=== PATIENT | female | born 1980 | race African-American/Black ===

== ENCOUNTER 2016-05-19 04:51 | Emergency (ER) | payer SELFPAY ==
[~2016-05-19] VITALS: Ht 170.2 cm; Wt 115.0 kg
[2016-05-19 04:55] VITALS: BP 182/93; PULSE 108; RESP 18; TEMP 98.4; O2SAT 96
[2016-05-19 05:00] VITALS: O2SAT 92
[2016-05-19] MEDS: RESP: ALBUTEROL 2.5 MG/3 ML NEB (SCH) INH (05:11)
--- NOTE | 2016-05-19 05:13 | PD ---
HPI Chief Complaint: Respiratory Distress Time Seen by Provider: 04:54 Travel History International Travel<30 days: No Contact w/Intl Traveler<30days: No Traveled to known affect area: No History of Present Illness HPI The patient is a 35 year old female who presents to the [facility] emergency department with a history of shortness of breath that began last night. The patient reports that she has used her Ventolin inhaler without improvement. She denies having any other allergy symptoms or upper respiratory congestion. She reports that she has had a mainly dry cough since the onset of the shortness of breath, however it is occasionally productive of clear sputum. She reports that she does have a history of asthma. She reports that she has had chills and intermittent sweating. The patient denies any recent fevers, neck pain, chest pain, abdominal pain, vomiting, diarrhea, urinary symptoms, or neurologic symptoms. LMP: A week ago PFSH Past Medical History Narrative Medical The patient's past medical history is significant for asthma. Asthma: Yes Tetanus Vaccination: < 5 Years Influenza Vaccination: No ?: Unknown LMP: 05/11/16 : 2 Past Surgical History Narrative Surgical The patient's past surgical history is significant for a cholecystectomy, 2 prior abortions. Appendectomy: Yes Social History Alcohol Use: No Tobacco Use: No Substance Use: No Allergies-Medications (Allergen,Severity, Reaction): Coded Allergies: Coconut (Verified Allergy, Unknown, 05/19/16) Egg Allergy (Verified Allergy, Unknown, 05/19/16) Latex (Verified Allergy, Unknown, 05/19/16) Peanut (Verified Allergy, Unknown, 05/19/16) Narrative Medication A Ventolin inhaler Review of Systems Except as stated in HPI: all other systems reviewed are Neg General / Constitutional: No: Fever Eyes: No: Visual changes HENT: No: Headaches Cardiovascular: No: Chest Pain or Discomfort, Dyspnea on exertion Respiratory: Positive: Cough, Shortness of Breath, Wheezing Gastrointestinal: No: Abdominal Pain Genitourinary: No: Dysuria Musculoskeletal: No: Pain Skin: No Rash Neurologic: No: Weakness Psychiatric: No: Depression Endocrine: No: Polydipsia Hematologic/Lymphatic: No: Easy Bruising Physical Exam Narrative General: The patient is a well-developed well-nourished female who appears short of breath on arrival. Head and Neck exam: Head is normocephalic atraumatic. Eyes: Pupils are equal round and reactive to light. Nose: Midline septum with pink mucous membranes Mouth: Dentition unremarkable. Moist mucus membranes. Posterior oropharynx is not erythematous. No tonsillar hypertrophy. Uvula midline. Airway patent. Neck: No palpable lymphadenopathy. No nuchal rigidity. No thyromegaly. Cardiovascular: Regular rate and rhythm without murmurs, gallops, or rubs. Lungs: Soft expiratory wheezes audible throughout bilateral lung anderson, no rhonchi, no crackles. The patient has some conversational dyspnea. She has some accessory muscle use. No tripoding. No paroxysmal abdominal breathing. Abdomen: Soft, without tenderness to palpation in all 4 quadrants of the abdomen. No guarding, rebound, or rigidity. Normal bowel sounds are audible. Extremities: No clubbing, cyanosis, or edema. 2+ pulses in all 4 extremities. No calf tenderness on palpation. Back: No spinous process tenderness to palpation. No costovertebral angle tenderness to palpation. Neurologic Exam: Grossly nonfocal. Skin Exam: No rash noted. Intact skin that is warm and dry. Data Data Last Documented VS Vital Signs Date Time Temp Pulse Resp B/P Pulse Ox O2 Delivery O2 Flow Rate FiO2 05/19/16 05:00 92 21 05/19/16 04:57 96 22 Room Air 05/19/16 04:55 98.4 182/93 Orders Complete Blood Count With Diff (05/19/16 05:04) Basic Metabolic Panel (Bmp) (05/19/16 05:04) C-Reactive Protein (Crp) (05/19/16 05:04) Influenzae A/B Antigen (05/19/16 05:04) Chest, Single Ap (05/19/16 05:04) Iv Access Insert/Monitor (05/19/16 05:04) Ecg Monitoring (05/19/16 05:04) Oximetry (05/19/16 05:04) Methylprednisolone So Succ Inj (Solumedr (05/19/16 05:15) Albuterol-Ipratropium Neb (Duoneb Neb) (05/19/16 05:15) Sodium Chloride 0.9% Flush (Ns Flush) (05/19/16 05:15) Albuterol Neb (Albuterol Neb) (05/19/16 05:15) Azithromycin Inj (Zithromax Inj) (05/19/16 06:30) Acetaminophen (Tylenol) (05/19/16 06:30) Labs Laboratory Tests Test 05/19/16 05:10 White Blood Count 5.1 TH/MM3 Red Blood Count 4.08 MIL/MM3 Hemoglobin 10.7 GM/DL Hematocrit 32.1 % Mean Corpuscular Volume 78.8 FL Mean Corpuscular Hemoglobin 26.2 PG Mean Corpuscular Hemoglobin 33.3 % Concent Red Cell Distribution Width 18.4 % Platelet Count 264 TH/MM3 Mean Platelet Volume 10.1 FL Neutrophils (%) (Auto) 60.2 % Lymphocytes (%) (Auto) 26.8 % Monocytes (%) (Auto) 11.4 % Eosinophils (%) (Auto) 0.2 % Basophils (%) (Auto) 1.4 % Neutrophils # (Auto) 3.0 TH/MM3 Lymphocytes # (Auto) 1.4 TH/MM3 Monocytes # (Auto) 0.6 TH/MM3 Eosinophils # (Auto) 0.0 TH/MM3 Basophils # (Auto) 0.1 TH/MM3 CBC Comment DIFF FINAL Differential Comment Sodium Level 140 MEQ/L Potassium Level 3.8 MEQ/L Chloride Level 106 MEQ/L Carbon Dioxide Level 26.4 MEQ/L Anion Gap 8 MEQ/L Blood Urea Nitrogen 10 MG/DL Creatinine 0.91 MG/DL Estimat Glomerular Filtration 86 ML/MIN Rate Random Glucose 88 MG/DL Calcium Level 8.5 MG/DL C-Reactive Protein 3.20 MG/DL MDM Medical Decision Making Medical Screen Exam Complete: Yes Emergency Medical Condition: Yes Medical Record Reviewed: Yes Interpretation(s) Last Impressions Chest X-Ray 05/19/16 0504 Signed Impressions: Service Date/Time: Thursday, May 19, 2016 05:15 - CONCLUSION: No acute disease. Tc Saucedo MD Differential Diagnosis Asthma exacerbation, versus pneumonia, versus influenza, versus pneumonia Narrative Course During the course of the patients emergency department visit, the patients history, examination, and differential diagnosis were reviewed with the patient. The patient had IV access obtained and blood work sent for analysis. The patient was placed on a automatic bandsaw tender with oximetry and blood pressure monitoring. An EKG was done on arrival. The patient's EKG shows a sinus rhythm heart rate of 94, no acute ST segment elevation, T waves are inverted in V1, no acute ST segment depression. A chest x-ray was ordered. The patient was provided a DuoNeb 1, albuterol nebulizer treatments 2, Solu- Medrol 125 mg IV. The patients laboratory studies were reviewed and remarkable for a white count of 5.1, hemoglobin 10.7, platelets 264 with 11.4 monocytes, BNP is remarkable for a GFR of 86, C-reactive protein 3.20. Radiology studies were reviewed and remarkable for a chest x-ray that showed no acute abnormality. The patient was reexamined and reportedly feeling improved. The patient reports having a mild bitemporal headache. The patient was given Tylenol 650 by mouth 1, azithromycin 500 mg IV. The patient will be discharged home with a prescription for Medrol Dosepak taper, azithromycin to be completed over the next 4 days. The patient is resting comfortably and feels better, is alert and in no distress. The patients results and examination findings were discussed with her. The repeat examination is unremarkable and benign. The history, exam, diagnostic testing, and current condition do not suggest any significant pathology to warrant further testing, continued ED treatment, admission, or surgical evaluation at this point. The vital signs have been stable. The patient does not have uncontrollable pain, intractable vomiting, or other significant symptoms. The patient's condition is stable and appropriate for discharge. The patient will pursue further outpatient evaluation with a primary care physician or other designated or consulting physician as indicated in the discharge instructions. The patient expressed understanding and was agreeable with this plan. Diagnosis Primary Impression: Asthma exacerbation Additional Impression: Bronchitis Referrals: Ehsan Ponce MD 3 days Patient Instructions: Acute Bronchitis (ED), Asthma (ED), General Instructions Departure Forms: Tests/Procedures, Work Release Enter return to work date: May 20, 2016 Med/Other Pt SpecificInfo: Prescription(s) given Scripts Methylprednisolone Dosepak (Medrol Dosepak)4 Mg Dspk4 Mg PO DIRECTED #1 DSPK Ref 0 Per Pharmacist direction Prov:Monica Fernandez MD 05/19/16 Azithromycin 250 Mg Gte822 Mg PO DAILY 4 Days Ref 0 Prov:Monica Fernandez MD 05/19/16 Disposition: 01 DISCHARGE HOME Condition: Stable Monica Fernandez MD May 19, 2016 05:13
[2016-05-19] MEDS ORDERED: methylPREDNISolone SOD SUCC 125 MG/2 ML VIAL IVP ONE (05:15)
[2016-05-19] MEDS ORDERED: SODIUM CHLORIDE 0.9% FLUSH 5 ML FLUSH IVF PRN (05:15)
[2016-05-19] MEDS ORDERED: RESP: ALBUTEROL 2.5 MG/IPRATROPIUM 0.5 MG NEB (SCH) NEB ONE (05:15)
--- NOTE | 2016-05-19 05:32 | RADRPT ---
EXAM DATE/TIME: 05/19/2016 05:15 [facility] COMPARISON: No previous studies available for comparison. INDICATIONS : Pt short of breath. MEDICAL HISTORY : None. SURGICAL HISTORY : None. ENCOUNTER: Initial ACUITY: 1 day PAIN SCORE: 7/10 LOCATION: Bilateral chest FINDINGS: A single view of the chest demonstrates the lungs to be symmetrically aerated without evidence of mas s, infiltrate or effusion. The cardiomediastinal contours are unremarkable. Osseous structures are intact. CONCLUSION: No acute disease. Tc Saucedo MD on May 19, 2016 at 5:30 Board Certified Radiologist. This report was verified electronically.
[2016-05-19 05:53] LABS: BASOPHIL # 0.1 TH/MM3 (0-0.2); BASOPHIL % 1.4 % (0.0-2.0); EOSINOPHIL % 0.2 % (0.0-4.0); HEMATOCRIT 32.1 % (35.0-46.0); HEMO FLAGS DIFF FINAL; LYMPH % 26.8 % (9.0-44.0); LYMPHOCYTE # 1.4 TH/MM3 (1.0-4.8); MEAN CELL VOLUME 78.8 FL (80.0-100.0); MEAN CORPUSCULAR HEMOGLOBIN 26.2 PG (27.0-34.0); MEAN CORPUSCULAR HGB CONC 33.3 % (32.0-36.0); MONO % 11.4 % (0.0-8.0); NEUT % 60.2 % (16.0-70.0); PLATELET COUNT 264 TH/MM3 (150-450); RED BLOOD COUNT 4.08 MIL/MM3 (4.00-5.30); RED CELL DISTRIBUTION WIDTH 18.4 % (11.6-17.2); WHITE BLOOD COUNT 5.1 TH/MM3 (4.0-11.0)
[2016-05-19 05:55] LABS: BICARBONATE 26.4 MEQ/L (21.0-32.0); POTASSIUM 3.8 MEQ/L (3.5-5.1)
[2016-05-19] MEDS ORDERED: AZIT250T3 PO (06:20)
[2016-05-19] MEDS ORDERED: MEDR4PAK PO (06:20)
[2016-05-19] MEDS ORDERED: ACETAMINOPHEN 325 MG TAB PO ONE (06:30)
[2016-05-19] MEDS ORDERED: AZITHROMYCIN INJ 500 MG in SODIUM CHLOR 0.9% 250 ML INJ 250 ML IV ONE (06:30)
[2016-05-19 06:31] VITALS: BP 133/85; PULSE 101; RESP 18; TEMP 98.7; O2SAT 95
[2016-05-19 07:55] VITALS: BP 133/85; PULSE 90; RESP 16; O2SAT 96
[2016-05-19 08:55] VITALS: RESP 16
--- NOTE | 2016-05-19 19:23 | EKG ---
Date Performed: 05/19/2016 Time Performed: 04:58:25 PTAGE: 35 years EKG: Sinus rhythm NORMAL ECG NO PREVIOUS TRACING DOCTOR: Roberto Levin Interpretating Date/Time 05/19/2016 19:19:37
[2016-05-20] MEDS ORDERED: MUCI600T PO (09:58)
[2016-05-20] MEDS ORDERED: VENTAER INH (09:58)
[2016-05-20] MEDS ORDERED: PRED20 PO (10:00)
[2016-05-20] MEDS ORDERED: ZITH250T PO (10:00)
[2016-05-28] MEDS ORDERED: NEBULIZER/ADULT1 KIT (12:27)
[2016-05-28] MEDS ORDERED: VENTAER INH (12:35)
[2016-05-28] MEDS ORDERED: ALBU0.08 NEB (12:35)
[2016-05-28] MEDS ORDERED: BENZ100 PO (12:35)
== END 2016-05-19 09:05 | disposition home or self-care (01) ==
LOC: NEPE 04:51
DX: J45.901 Unspecified asthma with (acute) exacerbation (principal); J40 Bronchitis, not specified as acute or chronic; R05 Cough
CPT/HCPCS: 71010; 80048; 85025; 86140; 87804; 93005; 94640; 94664; 96365; 96366; 96375; 99284; J0456; J2930; J7050; J7613

== ENCOUNTER 2016-05-20 03:10 | Observation (INO) | payer SELFPAY ==
[2016-05-20] VITALS (11 sets, daily range): BP systolic 129–166; BP diastolic 63–97; PULSE 92–123; RESP 17–28; TEMP 97.6–99.4; O2SAT 92–98
[~2016-05-20 03:10] MED LIST: AZIT250T3 PO; MEDR4PAK PO
[2016-05-20] MEDS ORDERED: methylPREDNISolone SOD SUCC 125 MG/2 ML VIAL IVP ONE (04:00)
[2016-05-20] MEDS ORDERED: cefTRIAXone INJ 1,000 MG in SODIUM CHLORIDE 0.9% INJ 100 ML IV ONE (04:00)
[2016-05-20] MEDS ORDERED: SODIUM CHLORIDE 0.9% FLUSH 5 ML FLUSH IVF PRN (04:00)
[2016-05-20] MEDS ORDERED: AZITHROMYCIN INJ 500 MG in SODIUM CHLOR 0.9% 250 ML INJ 250 ML IV ONE (04:00)
--- NOTE | 2016-05-20 04:13 | PD ---
HPI Chief Complaint: Respiratory Symptoms Time Seen by Provider: 03:36 Travel History International Travel<30 days: No Contact w/Intl Traveler<30days: No Traveled to known affect area: No History of Present Illness HPI The patient is a 35 year old female who presents to the [facility] emergency department with a history of coughing and congestion that she reports began 2-3 days ago. The patient reports that on May 18 she began to have wheezing and shortness of breath. She reports that she used her Ventolin inhaler without relief. The patient came to the emergency department early in the morning on May 19 for evaluation. The patient was seen by me and diagnosed with bronchitis and asthma exacerbation after laboratory studies and a chest x-ray were done. The patient improved after administration of nebulizer treatments, Solu-Medrol IV, and azithromycin was given and a single dose. The patient was discharged home with a Medrol Dosepak taper and continuation of her antibiotic prescription. The patient reports that the medications were too expensive. She reports that at 5 PM today she began to have recurrence of the wheezing and shortness of breath. She reports that she has a headache from coughing. She reports that the headache is bitemporal. The patient reports having upper abdominal pain in the musculature related to coughing. The patient denies any recent fevers neck pain, chest pain, shortness of breath, abdominal pain, vomiting, diarrhea, urinary symptoms, or neurologic symptoms. LMP: Approximately a week ago. [facility] Past Medical History Narrative Medical The patient's past medical history is significant for asthma, multiple food allergies. Asthma: Yes Tetanus Vaccination: Unknown Influenza Vaccination: No ?: Not LMP: 05/16/16 : 2 Past Surgical History Narrative Surgical The patient's past surgical history is significant for a cholecystectomy, 2 prior abortions. Appendectomy: Yes Social History Alcohol Use: No Tobacco Use: No Substance Use: No Allergies-Medications (Allergen,Severity, Reaction): Coded Allergies: Coconut (Verified Allergy, Unknown, 05/19/16) Egg Allergy (Verified Allergy, Unknown, 05/19/16) Latex (Verified Allergy, Unknown, 05/19/16) Peanut (Verified Allergy, Unknown, 05/19/16) Reported Meds & Prescriptions Reported Meds & Active Scripts Active Prednisone 20 Mg Tab 40 Mg PO DAILY Zithromax (Azithromycin) 250 Mg Tab 250 Mg PO DAILY Ventolin Hfa 18 GM Inh (Albuterol Sulfate) 90 Mcg/Act Aer 2 Puff INH Q4H PRN Mucinex ER 12 HR (Guaifenesin) 600 Mg Liz 600 Mg PO BID Medrol Dosepak (Methylprednisolone) 4 Mg Dspk 4 Mg PO DIRECTED Per Pharmacist direction Azithromycin 250 Mg Tab 250 Mg PO DAILY 4 Days Review of Systems Except as stated in HPI: all other systems reviewed are Neg General / Constitutional: No: Fever Eyes: No: Visual changes HENT: Positive: Headaches (bitemporal), Rhinorrhea, Congestion, No: Neck Stiffness, Neck Pain Cardiovascular: No: Chest Pain or Discomfort Respiratory: Positive: Cough, No: Shortness of Breath Gastrointestinal: No: Nausea, Vomiting, Diarrhea, Abdominal Pain Genitourinary: No: Dysuria Musculoskeletal: No: Pain Skin: No Rash Neurologic: No: Weakness Psychiatric: No: Depression Endocrine: No: Polydipsia Hematologic/Lymphatic: No: Easy Bruising Physical Exam Narrative General: The patient is well-developed well-nourished female, short of breath on initial evaluation with accessory muscle use, conversational dyspnea. Head and Neck exam: Head is normocephalic atraumatic. Eyes: Pupils are equal round and reactive to light. Nose: Midline septum with erythematous edematous nasal mucosa and a clear nasal discharge. Mouth: Dentition unremarkable. Moist mucus membranes. Posterior oropharynx is slightly erythematous. No tonsillar hypertrophy. Uvula midline. Airway patent. Neck: No palpable lymphadenopathy. No nuchal rigidity. No thyromegaly. Cardiovascular: Sinus tachycardia in the low 100s to 1 teens without murmurs, gallops, or rubs. No pulse deficit to the extremities and simultaneous auscultation and palpation of her radial artery. Lungs: Bilateral expiratory wheezes are noted. No rhonchi, no crackles. No tripoding. No paroxysmal abdominal breathing. She does have some retractions noted. Abdomen: Soft, without tenderness to palpation in all 4 quadrants of the abdomen. No guarding, rebound, or rigidity. Normal bowel sounds are audible. No tenderness on palpation of McBurney's point. Extremities: No clubbing, cyanosis, or edema. 2+ pulses in all 4 extremities. No calf tenderness on palpation. Back: No spinous process tenderness to palpation. No costovertebral angle tenderness to palpation. Neurologic Exam: Grossly nonfocal. Skin Exam: No rash noted. Intact skin that is warm and dry. Data Data Last Documented VS Vital Signs Date Time Temp Pulse Resp B/P Pulse Ox O2 Delivery O2 Flow Rate FiO2 05/20/16 05:19 20 05/20/16 05:19 96 Nasal Cannula 2 05/20/16 03:37 112 152/87 05/20/16 03:14 99.4 Orders Complete Blood Count With Diff (05/20/16 03:56) Comprehensive Metabolic Panel (05/20/16 03:56) D-Dimer (05/20/16 03:56) Iv Access Insert/Monitor (05/20/16 03:56) Electrocardiogram (05/20/16 03:56) Ecg Monitoring (05/20/16 03:56) Oximetry (05/20/16 03:56) Oxygen Administration (05/20/16 03:56) Sodium Chloride 0.9% Flush (Ns Flush) (05/20/16 04:00) Methylprednisolone So Succ Inj (Solumedr (05/20/16 04:00) Albuterol Neb (Albuterol Neb) (05/20/16 04:00) Ceftriaxone Inj (Rocephin Inj) (05/20/16 04:00) Azithromycin Inj (Zithromax Inj) (05/20/16 04:00) Admit Order (Ed Use Only) (05/20/16 05:37) Chest, Single Ap (05/20/16 05:38) Labs Laboratory Tests Test 05/20/16 05/20/16 04:00 04:35 White Blood Count 8.6 TH/MM3 Red Blood Count 4.11 MIL/MM3 Hemoglobin 10.7 GM/DL Hematocrit 32.6 % Mean Corpuscular Volume 79.3 FL Mean Corpuscular Hemoglobin 26.1 PG Mean Corpuscular Hemoglobin 32.9 % Concent Red Cell Distribution Width 19.2 % Platelet Count 273 TH/MM3 Mean Platelet Volume 9.9 FL Neutrophils (%) (Auto) 72.1 % Lymphocytes (%) (Auto) 17.1 % Monocytes (%) (Auto) 10.3 % Eosinophils (%) (Auto) 0.0 % Basophils (%) (Auto) 0.5 % Neutrophils # (Auto) 6.2 TH/MM3 Lymphocytes # (Auto) 1.5 TH/MM3 Monocytes # (Auto) 0.9 TH/MM3 Eosinophils # (Auto) 0.0 TH/MM3 Basophils # (Auto) 0.0 TH/MM3 CBC Comment DIFF FINAL Differential Comment Sodium Level 142 MEQ/L Potassium Level 4.0 MEQ/L Chloride Level 109 MEQ/L Carbon Dioxide Level 24.1 MEQ/L Anion Gap 9 MEQ/L Blood Urea Nitrogen 19 MG/DL Creatinine 0.92 MG/DL Estimat Glomerular Filtration 85 ML/MIN Rate Random Glucose 90 MG/DL Calcium Level 9.1 MG/DL Total Bilirubin 0.3 MG/DL Aspartate Amino Transf 24 U/L (AST/SGOT) Alanine Aminotransferase 26 U/L (ALT/SGPT) Alkaline Phosphatase 84 U/L Total Protein 8.3 GM/DL Albumin 3.6 GM/DL D-Dimer Quantitative (PE/DVT) 0.43 MG/L [facility] Medical Decision Making Medical Screen Exam Complete: Yes Emergency Medical Condition: Yes Medical Record Reviewed: Yes Interpretation(s) Last Impressions Chest X-Ray 05/20/16 0538 Signed Impressions: Service Date/Time: Friday, May 20, 2016 05:38 - CONCLUSION: No acute disease. Tc Saucedo MD Differential Diagnosis Asthma exacerbation, versus pneumothorax, versus pneumonia, versus pulmonary embolism Narrative Course During the course of the patients emergency department visit, the patients history, examination, and differential diagnosis were reviewed with the patient. The patient had IV access obtained and blood work sent for analysis. The patient was placed on a teaching young with oximetry and blood pressure monitoring. An EKG was ordered. The patient's EKG revealed a sinus tachycardia rate of 105, nonspecific T-wave abnormalities, no acute ST segment elevation is noted. The patient was provided Solu-Medrol 125 mg IV, albuterol nebulizer treatments 3. The patients laboratory studies were reviewed and remarkable for a white count of 8.6, hemoglobin 10.7, platelets 273 with 72.1 neutrophils, monocytes 10.3, CMP is remarkable for a chloride of 109, BUN 19, GFR of 85, total protein 8.3, d -dimer is 0.43, decreasing the likelihood of pulmonary embolism in this patient with no other significant risk factors. The patient was reexamined and continued to have soft expiratory wheezes. The patient was given a dose of Phenergan with codeine cough syrup for persistent dry cough. They she'll be admitted to the hospital for observation for an asthma exacerbation. The patients results were discussed with the patient, including the plan of care. I explained that further testing and/ or monitoring is indicated based on the patients history, examination, and/ or laboratory findings. Therefore, I recommended admission for additional evaluation. The patient expressed understanding and was agreeable with this plan. The patient was admitted to the hospital in stable condition and [facility] Physician Communication Physician Communication The patient's case was discussed with Dr. Ch who did agree to admit the patient for further evaluation and treatment at this time. Diagnosis Primary Impression: Asthma exacerbation Additional Impression: Bronchitis Admitting Information Admitting Physician Requests: Observation Scripts Prednisone 20 Mg Tab40 Mg PO DAILY #8 TAB Prov:Vaibhav Tran MD 05/20/16 Azithromycin (Zithromax)250 Mg Qab187 Mg PO DAILY #3 TAB Prov:Vaibhav Tran MD 05/20/16 Albuterol 18 GM Inh (Ventolin Hfa 18 GM Inh)90 Mcg/Act Aer2 Puff INH Q4H PRN ( SHORTNESS OF BREATH) #1 INHALER Ref 0 Prov:Vaibhav Tran MD 05/20/16 Guaifenesin ER 12 HR (Mucinex ER 12 HR)600 Mg [id number] Mg PO BID #20 TAB Prov:Vaibhav Tran MD 05/20/16 Monica Fernandez MD May 20, 2016 04:13
[2016-05-20] MEDS: RESP: ALBUTEROL 2.5 MG/3 ML NEB (SCH) INH ×2 (04:29→04:30)
[2016-05-20 04:30] LABS: AUTOMATED NEUTROPHIL # 6.2 TH/MM3 (1.8-7.7); BASOPHIL % 0.5 % (0.0-2.0); HEMATOCRIT 32.6 % (35.0-46.0); HEMO FLAGS DIFF FINAL; LYMPH % 17.1 % (9.0-44.0); LYMPHOCYTE # 1.5 TH/MM3 (1.0-4.8); MEAN CELL VOLUME 79.3 FL (80.0-100.0); MEAN CORPUSCULAR HEMOGLOBIN 26.1 PG (27.0-34.0); MEAN CORPUSCULAR HGB CONC 32.9 % (32.0-36.0); MONO % 10.3 % (0.0-8.0); NEUT % 72.1 % (16.0-70.0); PLATELET COUNT 273 TH/MM3 (150-450); RED BLOOD COUNT 4.11 MIL/MM3 (4.00-5.30); RED CELL DISTRIBUTION WIDTH 19.2 % (11.6-17.2); WHITE BLOOD COUNT 8.6 TH/MM3 (4.0-11.0)
[2016-05-20 04:50] LABS: ALKALINE PHOSPHATASE 84 U/L (45-117); ALT (GPT) 26 U/L (10-53); ANION GAP 9 MEQ/L (5-15); AST (GOT) 24 U/L (15-37); BICARBONATE 24.1 MEQ/L (21.0-32.0); BLOOD UREA NITROGEN 19 MG/DL (7-18); CHLORIDE 109 MEQ/L (98-107); GLOMERULAR FILTRATION RATE 85 ML/MIN (>89); SODIUM (NA) 142 MEQ/L (136-145); TOTAL BILIRUBIN ADULT 0.3 MG/DL (0.2-1.0)
[2016-05-20] MEDS ORDERED: NALOXONE HCL 0.4 MG/ML AMP IV PRN (06:00)
[2016-05-20] MEDS ORDERED: SODIUM CHLORIDE 0.9% FLUSH 5 ML FLUSH FLUSH PRN (06:00)
[2016-05-20] MEDS ORDERED: RESP: ALBUTEROL 2.5 MG/IPRATROPIUM 0.5 MG NEB (PRN) NEB (06:00)
--- NOTE | 2016-05-20 06:10 | RADRPT ---
EXAM DATE/TIME: 05/20/2016 05:38 [facility] COMPARISON: CHEST SINGLE AP, May 19, 2016, 5:15. INDICATIONS : Shortness of breath. MEDICAL HISTORY : Asthma. SURGICAL HISTORY : None. ENCOUNTER: Initial ACUITY: 1 day PAIN SCORE: 0/10 LOCATION: Bilateral chest FINDINGS: A single view of the chest demonstrates the lungs to be symmetrically aerated without evidence of mas s, infiltrate or effusion. The cardiomediastinal contours are unremarkable. Osseous structures are intact. CONCLUSION: No acute disease. Tc Saucedo MD on May 20, 2016 at 6:08 Board Certified Radiologist. This report was verified electronically.
[2016-05-20] MEDS ORDERED: PROMETHAZINE/CODEINE 6.25 MG/10 MG/5 ML CUP PO ONE (07:15)
[2016-05-20] MEDS: RESP: ALBUTEROL 2.5 MG/IPRATROPIUM 0.5 MG NEB (SCH) NEB ×5 (07:31→23:46)
[2016-05-20] MEDS ORDERED: ACETAMINOPHEN 325 MG TAB PO PRN (08:00)
[2016-05-20] MEDS ORDERED: CALCIUM CARBONATE 500 MG CHEWABLE TAB CHEW PRN (08:00)
[2016-05-20] MEDS ORDERED: ONDANSETRON HCL 4 MG/2 ML VIAL IV PRN (08:00)
[2016-05-20] MEDS ORDERED: DOCUSATE SODIUM 100 MG CAP PO PRN (08:00)
[2016-05-20] MEDS ORDERED: DOCUSATE SODIUM 50 MG/SENNA 8.6 MG TAB PO PRN (08:00)
[2016-05-20] MEDS ORDERED: ALUMINUM/MAGNESIUM/SIMETH 30 ML CUP PO PRN (08:00)
[2016-05-20] MEDS ORDERED: MAGNESIUM HYDROXIDE SUSP 30 ML CUP PO PRN (08:00)
[2016-05-20] MEDS ORDERED: BENZONATATE 100 MG CAP PO PRN (09:45)
[2016-05-20] MEDS ORDERED: guaiFENesin/CODEINE SYRUP 200 MG/20 MG/10 ML CUP PO PRN (09:45)
--- NOTE | 2016-05-20 09:56 | HHI.HP ---
HPI Service [facility] Hospitalists Primary Care Physician No Primary Care Physician Admission Diagnosis asthma exacerbation, bronchitis Diagnoses: Travel History International Travel<30 Days: No Contact w/Intl Traveler <30 Da: No Traveled to Known Affected Are: No History of Present Illness This a 35 year old female with a history of bronchial asthma diagnosed 3 years ago. States she has used steroids for asthma and has been hospitalized once but never been intubated. She returns to the [facility] emergency department with a history of nonproductive coughing and congestion that began 2- 3 days ago associated with wheezing and shortness of breath specially on exertion. Patient states her asthma attacks are related to change in weather but she believes it started after she sprayed in the bathroom. She reports that she used her Ventolin inhaler without relief. The patient came to the emergency department early in the morning on May 19 for evaluation. She was diagnosed with bronchitis and asthma exacerbation. The patient improved after administration of nebulizer treatments, Solu-Medrol IV, and azithromycin and was discharged home with a Medrol Dosepak taper and continuation of her antibiotic prescription. The patient reports that the medications were too expensive. She reports that at 5 PM yesterday she began to have recurrence of the wheezing and shortness of breath. She reports that she has a bitemporal headache from coughing. The patient reports having pleuritic lower chest and upper abdominal pain related to coughing. The patient denies any recent fevers neck pain, chest pain, vomiting, diarrhea, urinary symptoms, or neurologic symptoms. This morning she feels better with no headache with improving pleuritic chest pain and wheezing but continues to have dyspnea on exertion. Review of Systems Constitutional: DENIES: Diaphoretic episodes, Fatigue, Fever, Weight gain, Weight loss, Chills, Dizziness, Change in appetite, Night Sweats Endocrine: DENIES: Heat/cold intolerance, Polydipsia, Polyuria, Polyphagia Eyes: DENIES: Blurred vision, Diplopia, Vision loss, Photosensitivity Ears, nose, mouth, throat: DENIES: Tinnitus, Vertigo, Throat pain, Hoarseness, Epistaxis, Odynophagia Respiratory: COMPLAINS OF: Cough, Shortness of breath, DENIES: Wheezing, Hemoptysis, Sputum production Cardiovascular: COMPLAINS OF: Chest pain, DENIES: Palpitations, Syncope, Dyspnea on Exertion, PND, Lower Extremity Edema, Orthopnea, Claudication Gastrointestinal: COMPLAINS OF: Abdominal pain, DENIES: Black stools, Bloody stools, Constipation, Diarrhea, Nausea, Vomiting, Difficulty Swallowing, Anorexia Genitourinary: DENIES: Urinary frequency, Urinary incontinence, Urgency, Hematuria, Dysuria, Nocturia, Vaginal discharge Integumentary: DENIES: Rash Neurologic: COMPLAINS OF: Headache, DENIES: Localized weakness, Seizures, Tremor, Poor Balance Psychiatric: DENIES: Anxiety, Confusion, Depression, Hallucinations, Agitation , Suicidal Ideation, Homicidal Ideation, Delusions Past Family Social History Past Medical History As previously mentioned Past Surgical History Cholecystectomy and two abortions. LMP 05/09/16 Reported Medications Medrol Dosepak and azithromycin Allergies: Coded Allergies: Coconut (Verified Allergy, Unknown, 05/19/16) Egg Allergy (Verified Allergy, Unknown, 05/19/16) Latex (Verified Allergy, Unknown, 05/19/16) Peanut (Verified Allergy, Unknown, 05/19/16) Family History No asthma Physical Exam Vital Signs Vital Signs Date Time Temp Pulse Resp B/P Pulse Ox O2 Delivery O2 Flow Rate FiO2 05/20/16 07:32 94 Nasal Cannula 2.00 05/20/16 06:52 103 24 134/63 92 Nasal Cannula 05/20/16 05:19 20 05/20/16 05:19 96 Nasal Cannula 2 05/20/16 03:42 24 95 05/20/16 03:37 112 24 152/87 95 05/20/16 03:14 99.4 123 28 166/97 95 Physical Exam GENERAL: This is a well-nourished, well-developed patient, in no apparent distress. SKIN: No rashes, ecchymoses or lesions. Cool and dry. HEAD: Atraumatic. Normocephalic. No temporal or scalp tenderness. EYES: Pupils equal round and reactive. Extraocular motions intact. No scleral icterus. No injection or drainage. ENT: Nose without bleeding, purulent drainage or septal hematoma. Throat without erythema, tonsillar hypertrophy or exudate. Uvula midline. Airway patent. NECK: Trachea midline. No JVD or lymphadenopathy. Supple, nontender, no meningeal signs. CARDIOVASCULAR: Regular rate and rhythm without murmurs, gallops, or rubs. RESPIRATORY: Clear to auscultation. Breath sounds equal bilaterally. No wheezes , rales, or rhonchi. GASTROINTESTINAL: Abdomen soft, non-tender, nondistended. No guarding. MUSCULOSKELETAL: Extremities without clubbing, cyanosis, or edema. No joint tenderness, effusion, or edema noted. No calf tenderness. Negative Homans sign bilaterally. NEUROLOGICAL: Awake and alert. Cranial nerves II through XII intact. Motor and sensory grossly within normal limits. Five out of 5 muscle strength in all muscle groups. Normal speech. Laboratory Laboratory Tests Test 05/20/16 05/20/16 04:00 04:35 White Blood Count 8.6 Red Blood Count 4.11 Hemoglobin 10.7 Hematocrit 32.6 Mean Corpuscular Volume 79.3 Mean Corpuscular Hemoglobin 26.1 Mean Corpuscular Hemoglobin 32.9 Concent Red Cell Distribution Width 19.2 Platelet Count 273 Mean Platelet Volume 9.9 Neutrophils (%) (Auto) 72.1 Lymphocytes (%) (Auto) 17.1 Monocytes (%) (Auto) 10.3 Eosinophils (%) (Auto) 0.0 Basophils (%) (Auto) 0.5 Neutrophils # (Auto) 6.2 Lymphocytes # (Auto) 1.5 Monocytes # (Auto) 0.9 Eosinophils # (Auto) 0.0 Basophils # (Auto) 0.0 CBC Comment DIFF FINAL Differential Comment Sodium Level 142 Potassium Level 4.0 Chloride Level 109 Carbon Dioxide Level 24.1 Anion Gap 9 Blood Urea Nitrogen 19 Creatinine 0.92 Estimat Glomerular Filtration 85 Rate Random Glucose 90 Calcium Level 9.1 Total Bilirubin 0.3 Aspartate Amino Transf 24 (AST/SGOT) Alanine Aminotransferase 26 (ALT/SGPT) Alkaline Phosphatase 84 Total Protein 8.3 Albumin 3.6 D-Dimer Quantitative (PE/DVT) 0.43 Result Diagram: 05/20/1639905/20/16399 Imaging Chest x-ray with no acute cardiopulmonary disease image interpreted by me EKG tracing interpreted by me with sinus tachycardia Assessment and Plan Problem List: (1) Asthma exacerbation ICD Code: J45.901 Status: Acute (2) Bronchitis ICD Code: J40 Status: Acute Assessment and Plan This is a 35-year-old female with a history of bronchial asthma who returned to the emergency room with nonproductive coughing, congestion, wheezing and shortness of breath with normal chest x-ray. Asthma exacerbation secondary to bronchitis with failed outpatient therapy. Continue nebulizations, Zithromax and switch steroids to by mouth. Increase activity as tolerated. Sinus tachycardia secondary to above Pleuritic chest and abdominal pain. Tylenol as needed. Start mucolytics and antitussives. Low risk for DVT Case management consult for patient's assistance Discussed Condition With Patient Discharge patient to home Condition on discharge: Improved Regular Diet as tolerated Ad Rebecca activity no driving Rx written: Zithromax, albuterol and prednisone Follow-up with primary care physician in one week Vaibhav Tran MD May 20, 2016 09:56
[2016-05-20] MEDS ORDERED: MUCI600T PO (09:58)
[2016-05-20] MEDS ORDERED: VENTAER INH (09:58)
--- NOTE | 2016-05-20 09:58 | HHI.DCPOC ---
Discharge Care Plan Diagnosis: (1) Bronchitis (2) Asthma exacerbation Your Health Problems Are: Difficulty with ADL Exercise Tolerance Goals to Promote Your Health * To prevent worsening of your condition and complications * To maintain your health at the optimal level Directions to Meet Your Goals Take your medications as prescribed Follow your dietary instruction Follow activity as directed Keep your appointments as scheduled Take your immunizations and boosters as scheduled If your symptoms worsen call your PCP, if no PCP go to Urgent Care Center or Emergency Room Smoking is Dangerous to Your Health. Avoid second hand smoke Call the 24-hour hour crisis hotline for domestic abuse at Vaibhav Tran MD May 20, 2016 09:58
[2016-05-20] MEDS ORDERED: ZITH250T PO (10:00)
[2016-05-20] MEDS ORDERED: PRED20 PO (10:00)
[2016-05-20] MEDS: SODIUM CHLORIDE 0.9% FLUSH 5 ML FLUSH FLUSH SCH ×2 (10:17→21:00)
[2016-05-20] MEDS: guaiFENesin E.R. 600 MG TAB PO SCH ×2 (10:17→21:17)
[2016-05-20] MEDS: PANTOPRAZOLE SOD 40 MG DELAYED RELEASE TAB PO SCH (10:17)
[2016-05-20] MEDS: predniSONE 20 MG TAB PO SCH (10:17)
--- NOTE | 2016-05-20 10:47 | EKG ---
Date Performed: 05/20/2016 Time Performed: 03:23:44 PTAGE: 35 years EKG: SINUS TACHYCARDIA NONSPECIFIC T-WAVE ABNORMALITY ABNORMAL RHYTHM ECG Compared to prior trac ing no significant change PREVIOUS TRACING : 05/19/2016 04.58 DOCTOR: David Fernandez Interpretating Date/Time 05/20/2016 10:44:01
[2016-05-20] MEDS ORDERED: methylPREDNISolone SOD SUCC 40 MG/1 ML VIAL IV PUSH SCH (12:00)
[2016-05-21 01:30] VITALS: BP 117/78; PULSE 64; RESP 18; TEMP 98.7; O2SAT 98
[2016-05-21] MEDS: RESP: ALBUTEROL 2.5 MG/IPRATROPIUM 0.5 MG NEB (SCH) NEB ×4 (03:26→15:34)
[2016-05-21 03:27] VITALS: PULSE 80
[2016-05-21 06:00] VITALS: BP 143/93; PULSE 131; RESP 18; TEMP 97.8; O2SAT 98
[2016-05-21 07:30] VITALS: O2SAT 95
[2016-05-21 08:00] VITALS: BP 117/94; PULSE 80; PULSE 94; RESP 18; TEMP 99.1; O2SAT 92
[2016-05-21] MEDS: guaiFENesin E.R. 600 MG TAB PO SCH (08:57)
[2016-05-21] MEDS: predniSONE 20 MG TAB PO SCH (08:57)
[2016-05-21] MEDS: PANTOPRAZOLE SOD 40 MG DELAYED RELEASE TAB PO SCH (08:58)
[2016-05-21] MEDS ORDERED: AZITHROMYCIN 250 MG TAB PO SCH (09:00)
[2016-05-21] MEDS ORDERED: OXYGENTANK NAS.CANULA (10:34)
--- NOTE | 2016-05-21 10:34 | HHI.PR ---
Subjective Remarks Follow-up asthma. She is doing better able to increase activity. Still on nasal cannula. She wants to go home. Discussed with RN Objective Vitals Vital Signs Date Time Temp Pulse Resp B/P Pulse Ox O2 Delivery O2 Flow Rate FiO2 05/21/16 08:00 99.1 94 18 117/94 92 05/21/16 07:30 95 21 05/21/16 06:00 97.8 131 18 143/93 98 05/21/16 03:27 80 05/21/16 01:30 98.7 64 18 117/78 98 05/20/16 21:33 98.1 94 21 141/93 98 05/20/16 20:27 92 Nasal Cannula 2.00 05/20/16 16:30 97.6 108 20 136/97 93 05/20/16 12:00 98.2 92 18 130/71 96 Nasal Cannula 2 Result Diagram: 05/20/16 0400 05/20/16 0400 Imaging Last Impressions Chest X-Ray 05/20/16 0538 Signed Impressions: Service Date/Time: Friday, May 20, 2016 05:38 - CONCLUSION: No acute disease. Tc Saucedo MD Objective Remarks GENERAL: Well-developed, well-nourished in no distress SKIN: Warm and dry. HEAD: Atraumatic. Normocephalic. EYES: Pupils equal and round. No scleral icterus. No injection or drainage. ENT: No nasal bleeding or discharge. Mucous membranes pink and moist. NECK: Trachea midline. No JVD. CARDIOVASCULAR: Regular rate and rhythm. RESPIRATORY: No accessory muscle use. Clear to auscultation. Breath sounds equal bilaterally. GASTROINTESTINAL: Abdomen soft, non-tender, nondistended MUSCULOSKELETAL: Extremities without clubbing, cyanosis, or edema. No obvious deformities. NEUROLOGICAL: Awake and alert. No obvious cranial nerve deficits. Motor grossly within normal limits. Five out of 5 muscle strength in the arms and legs. Normal speech. PSYCHIATRIC: Appropriate mood and affect; insight and judgment normal. Procedures Non- A/P Problem List: (1) Asthma exacerbation ICD Code: J45.901 Status: Acute (2) Bronchitis ICD Code: J40 Status: Acute Assessment and Plan This is a 35-year-old female with a history of bronchial asthma who returned to the emergency room with nonproductive coughing, congestion, wheezing and shortness of breath with normal chest x-ray. Asthma exacerbation secondary to bronchitis with failed outpatient therapy. Continue nebulizations, Zithromax and switch steroids to by mouth. Increase activity as tolerated. Improving Sinus tachycardia secondary to above. Improved Pleuritic chest and abdominal pain. Tylenol as needed. Started mucolytics and antitussives. Improving Low risk for DVT Case management consult for patient's assistance Discharge Planning Discharge patient to home Condition on discharge: Improved Regular Diet as tolerated Ad Rebecca activity no driving Rx written: Zithromax, albuterol and prednisone. May be oxygen pending walk test Follow-up with primary care physician in one week Vaibhav Tran MD May 21, 2016 10:33
[2016-05-21 12:48] VITALS: BP 124/78; PULSE 97; RESP 16; TEMP 99.2; O2SAT 93
[2016-05-28] MEDS ORDERED: NEBULIZER/ADULT1 KIT (12:27)
[2016-05-28] MEDS ORDERED: BENZ100 PO (12:35)
[2016-05-28] MEDS ORDERED: ALBU0.08 NEB (12:35)
[2016-05-28] MEDS ORDERED: VENTAER INH (12:35)
== END 2016-05-21 20:58 | disposition home or self-care (01) ==
LOC: NEPC 03:10 → NEDA 05:39 → NEPGCP 15:51
PROVIDERS: ADMIT Internal Medicine; ATTEND Internal Medicine
DX: J40 Bronchitis, not specified as acute or chronic (principal); R09.89 Other specified symptoms and signs involving the circulatory and respiratory systems; R06.02 Shortness of breath; R51 Headache; R10.10 Upper abdominal pain, unspecified; R00.0 Tachycardia, unspecified
CPT/HCPCS: 71010; 80053; 85025; 85379; 93005; 94620; 94640; 94664; 96374; 96375; 99285; G0378; J0456; J0696; J2930; J7050; J7512; J7613

== ENCOUNTER 2017-06-23 14:36 | Emergency (ER) | payer SELFPAY ==
[~2017-06-23] VITALS: Ht 170.2 cm; Wt 130.5 kg
[~2017-06-23 14:36] MED LIST changes: +ALBU0.08 NEB; -AZIT250T3 PO; +BENZ100 PO; +MUCI600T PO; +NEBULIZER/ADULT1 KIT; +OXYGENTANK NAS.CANULA; +PRED20 PO; +VENTAER INH
[2017-06-23 14:38] VITALS: BP 126/82; PULSE 80; RESP 18; TEMP 99; O2SAT 100
--- NOTE | 2017-06-23 17:04 | PD ---
HPI Chief Complaint: Abdominal Pain Time Seen by Provider: 16:38 Travel History International Travel<30 days: No Contact w/Intl Traveler<30days: No Traveled to known affect area: No History of Present Illness HPI 36-year-old female presents to the emergency Department with complaint of right lower quadrant abdominal pain that radiates to her back that is intermittent 3 days. Also reports feeling dizzy. Denies abdominal pain at this time. Denies abnormal vaginal discharge, bleeding, odor. Denies dysuria. Denies fever, vomiting. Reports having diarrhea this morning. Has not taken any medication or tried any treatments to alleviate her symptoms. No known aggravating or relieving factors. Last menstrual period May 16. No primary care provider. Allergies to Peanuts, latex, coconut, aches, ipratropium. Denies significant past medical history. Has no other medical complaints. No other modifying factors or associated signs and symptoms. PFSH Past Medical History Medical History: Denies Significant Hx Asthma: Yes ?: Unknown LMP: 05/16/2017 : 2 Past Surgical History Appendectomy: Yes Cholecystectomy: Yes Social History Alcohol Use: No Tobacco Use: No Substance Use: No Allergies-Medications (Allergen,Severity, Reaction): Coded Allergies: coconut (Unverified Allergy, Unknown, 06/23/17) egg (Unverified Allergy, Unknown, 06/23/17) ipratropium (Unverified Allergy, Unknown, 06/23/17) latex (Unverified Allergy, Unknown, 06/23/17) Reported Meds & Prescriptions Reported Meds & Active Scripts Active Keflex (Cephalexin) 500 Mg Cap 500 Mg PO Q12H 7 Days Albuterol Neb (Albuterol Sulfate) 2.5 Mg/3 Ml Neb 2.5 Mg NEB Q4HR NEB PRN Tessalon Perles (Benzonatate) 100 Mg Cap 200 Mg PO TID PRN Ventolin Hfa 18 GM Inh (Albuterol Sulfate) 90 Mcg/Act Aer 2 Puff INH Q4H PRN Nebulizer/Adult Mask (N/A) 1 Kit Kit 1 Kit .ROUTE DIRECTED Oxygen tank (Oxygen) 1 Ea Tank 2 Liter ZACARIAS.CANULA CONTINUOUS Oxygen Concentrator Portable Gaseous 2 L/min via Nasal Cannula Continuous For 99 months Prednisone 20 Mg Tab 40 Mg PO DAILY Mucinex ER 12 HR (Guaifenesin) 600 Mg Liz 600 Mg PO BID Medrol Dosepak (Methylprednisolone) 4 Mg Dspk 4 Mg PO DIRECTED Per Pharmacist direction Review of Systems Except as stated in HPI: all other systems reviewed are Neg Physical Exam Narrative GENERAL: Well-nourished, well-developed black female patient, in no acute distress; afebrile, nontoxic-appearing SKIN: Warm and dry. HEAD: Atraumatic. Normocephalic. EYES: Pupils equal and round. No scleral icterus. No injection or drainage. ENT: Mucous membranes pink and moist. NECK: Trachea midline. No lymphadenopathy. CARDIOVASCULAR: Regular rate and rhythm. No murmur appreciated. RESPIRATORY: No accessory muscle use. Clear to auscultation. Breath sounds equal bilaterally. GASTROINTESTINAL: Abdomen soft, nontender, nondistended. Right pelvic region tender to palpation. Hepatic and splenic margins not palpable. No guarding, rigidity, rebound tenderness. Bladder nondistended and with minimal tenderness on palpation PELVIC: Exam done in the presence of a nurse. Speculum exam reveals edematous and erythematous cervix with yellowish, mucopurulent, foul-smelling discharge. Bimanual exam reveals no palpable masses or adnexa tenderness, no uterine tenderness. No cervical motion tenderness. BACK: No CVA tenderness. MUSCULOSKELETAL: No obvious deformities. No clubbing. No cyanosis. No edema. NEUROLOGICAL: Awake and alert. No obvious cranial nerve deficits. Motor grossly within normal limits. Normal speech. PSYCHIATRIC: Appropriate mood and affect; insight and judgment normal. Data Data Last Documented VS Vital Signs Date Time Temp Pulse Resp B/P (MAP) Pulse Ox O2 Delivery O2 Flow Rate FiO2 06/23/17 14:38 99.0 80 18 126/82 (97) 100 Room Air Orders Orders Complete Blood Count With Diff (06/23/17 14:41) Comprehensive Metabolic Panel (06/23/17 14:41) Lipase (06/23/17 14:41) Urinalysis - C+S If Indicated (06/23/17 14:41) Ed Urine Pregnancytest Poc (06/23/17 14:41) Beta Hcg (Quant/Titer) (06/23/17 16:52) Gc And Chlamydia Pcr (06/23/17 16:52) Wet Prep Profile (06/23/17 16:52) Urine Culture (06/23/17 16:30) Us Pelvis (Ques Pr/Ect)W Trans (06/23/17 ) Ceftriaxone Inj (Rocephin Inj) (06/23/17 18:30) Metronidazole (Flagyl) (06/23/17 18:30) Azithromycin (Zithromax) (06/23/17 18:30) Ondansetron Odt (Zofran Odt) (06/23/17 18:30) Lidocaine Pf 2% Inj (Xylocaine-Mpf 2% In (06/23/17 18:45) Labs Laboratory Tests Test 06/23/17 16:30 06/23/17 16:40 06/23/17 18:20 Urine Color YELLOW Urine Turbidity HAZY Urine pH 5.5 Urine Specific Meherrin 1.029 Urine Protein TRACE mg/dL Urine Glucose (UA) NEG mg/dL Urine Ketones NEG mg/dL Urine Occult Blood TRACE Urine Nitrite NEG Urine Bilirubin NEG Urine Urobilinogen LESS THAN 2.0 MG/DL Urine Leukocyte Esterase LARGE Urine RBC 12 /hpf Urine WBC 49 /hpf Urine WBC Clumps RARE Urine Squamous Epithelial Cells 8 /hpf Urine Bacteria OCC /hpf Urine Mucus FEW /lpf Urine Trichomonas RARE Microscopic Urinalysis Comment CULTURE INDICATED White Blood Count 5.8 TH/MM3 Red Blood Count 4.26 MIL/MM3 Hemoglobin 12.0 GM/DL Hematocrit 36.3 % Mean Corpuscular Volume 85.0 FL Mean Corpuscular Hemoglobin 28.2 PG Mean Corpuscular Hemoglobin Concent 33.2 % Red Cell Distribution Width 18.7 % Platelet Count 225 TH/MM3 Mean Platelet Volume 9.6 FL Neutrophils (%) (Auto) 49.0 % Lymphocytes (%) (Auto) 40.0 % Monocytes (%) (Auto) 9.6 % Eosinophils (%) (Auto) 0.6 % Basophils (%) (Auto) 0.8 % Neutrophils # (Auto) 2.8 TH/MM3 Lymphocytes # (Auto) 2.3 TH/MM3 Monocytes # (Auto) 0.6 TH/MM3 Eosinophils # (Auto) 0.0 TH/MM3 Basophils # (Auto) 0.0 TH/MM3 CBC Comment DIFF FINAL Differential Comment Blood Urea Nitrogen 14 MG/DL Creatinine 0.72 MG/DL Random Glucose 103 MG/DL Total Protein 8.0 GM/DL Albumin 3.5 GM/DL Calcium Level 9.0 MG/DL Alkaline Phosphatase 77 U/L Aspartate Amino Transf (AST/SGOT) 17 U/L Alanine Aminotransferase (ALT/SGPT) 21 U/L Total Bilirubin 0.1 MG/DL Sodium Level 137 MEQ/L Potassium Level 3.8 MEQ/L Chloride Level 104 MEQ/L Carbon Dioxide Level 26.6 MEQ/L Anion Gap 6 MEQ/L Estimat Glomerular Filtration Rate 112 ML/MIN Lipase 130 U/L Human Chorionic Gonadotropin, Quant 86740 MIU/ML Clue Cells (Wet Prep) NONE SEEN Vaginal Trichomonas (Wet Prep) PRESENT Vaginal Yeast (Wet Prep) NONE SEEN MDM Medical Decision Making Medical Screen Exam Complete: Yes Emergency Medical Condition: Yes Medical Record Reviewed: Yes Differential Diagnosis , ectopic , PID, cervicitis, appendicitis, UTI, pyelonephritis Narrative Course 36-year-old female with positive test in the ER with reproducible pain to the right lower pelvic region. Afebrile, nontoxic appearing. CBC, CMP , lipase, urinalysis, pelvic ultrasound, but prep, chlamydia, gonorrhea ordered. After the patient Tylenol and she declined. 1830: Urinalysis is signs of infection and with urine trichomonas. Patient will be empirically treated with Rocephin 1000 mg IM, azithromycin, and Flagyl 2 g in the ER. 1848: Pelvic US concludes: Intrauterine gestational sac corresponding to 6 weeks 2 days with heart rate of 154 bpm. Positive trichomonas. Negative vaginal yeast and bacterial vaginosis. Chlamydia and gonorrhea pending. Discussed all findings with the patient. Instructed patient to follow up with seed cleaning machine operator. Keflex prescribed for home. Instructed patient to follow up with primary care provider. Patient verbalizes understanding and agreement with treatment plan. Patient is medically cleared and stable for discharge. Discussed reasons to return to the emergency department. Patient agrees with treatment plan. The patients vital signs are stable and the patient is stable for outpatient follow-up and treatment. Patient discharged home, stable and in no acute distress. Diagnosis Primary Impression: Intrauterine Additional Impressions: Urinary tract infection Qualified Codes: N39.0 - Urinary tract infection, site not specified Trichomoniasis Referrals: Rpg Programmer Analyst Primary Care Physician Patient Instructions: First Trimester (ED), General Instructions, Trichomoniasis (ED), Urinary Tract Infection in (ED) Additional Instructions: Antibiotics as prescribed Avoid sexual activity for 14 days No sexual activity with your partner/s until they have been treated and waited 14 days Inform all sexual partners within the past 3-6 months that they need to be evaluated and treated Use condoms every time you have sex Follow-up with primary care provider Follow-up with seed cleaning machine operator Return to the emergency department immediately with worsening of symptoms Med/Other Pt SpecificInfo: Prescription(s) given Scripts Cephalexin (Keflex) 500 Mg Cap 500 MG PO Q12H for Infection for 7 Days, #14 CAP 0 Refills Prov: Christine Wolff 06/23/17 Disposition: 01 DISCHARGE HOME Condition: Stable Christine Wolff Jun 23, 2017 17:04
[2017-06-23 17:07] LABS: AUTOMATED NEUTROPHIL # 2.8 TH/MM3 (1.8-7.7); BASOPHIL % 0.8 % (0.0-2.0); EOSINOPHIL % 0.6 % (0.0-4.0); HEMATOCRIT 36.3 % (35.0-46.0); LYMPHOCYTE # 2.3 TH/MM3 (1.0-4.8); MEAN CORPUSCULAR HEMOGLOBIN 28.2 PG (27.0-34.0); MEAN CORPUSCULAR HGB CONC 33.2 % (32.0-36.0); MEAN PLATELET VOLUME 9.6 FL (7.0-11.0); MONO % 9.6 % (0.0-8.0); MONOCYTE # 0.6 TH/MM3 (0-0.9); PLATELET COUNT 225 TH/MM3 (150-450); RED BLOOD COUNT 4.26 MIL/MM3 (4.00-5.30); RED CELL DISTRIBUTION WIDTH 18.7 % (11.6-17.2); WHITE BLOOD COUNT 5.8 TH/MM3 (4.0-11.0)
[2017-06-23 17:23] LABS: ALBUMIN 3.5 GM/DL (3.4-5.0); ALT (GPT) 21 U/L (10-53); AST (GOT) 17 U/L (15-37); BICARBONATE 26.6 MEQ/L (21.0-32.0); BLOOD UREA NITROGEN 14 MG/DL (7-18); CHLORIDE 104 MEQ/L (98-107); CREATININE 0.72 MG/DL (0.50-1.00); GLOMERULAR FILTRATION RATE 112 ML/MIN (>89); GLUCOSE,RANDOM 103 MG/DL (74-106); SODIUM (NA) 137 MEQ/L (136-145)
[2017-06-23 17:24] LABS: ALKALINE PHOSPHATASE 77 U/L (45-117); TOTAL BILIRUBIN ADULT 0.1 MG/DL (0.2-1.0)
[2017-06-23 18:00] LABS: BACTERIA, URINE OCC /hpf; BILIRUBIN, URINE NEG (NEG); BLOOD, URINE TRACE (NEG); GLUCOSE,URINE NEG (NEG); KETONE, URINE NEG (NEG); MUCUS URINE FEW /lpf (OCC); NITRITE,URINE NEG (NEG); PH, URINE 5.5 (5.0-8.5); SQUAMOUS EPITHELIAL CELL URINE 8 /hpf (0-5); TRICHOMONAS, URINE RARE; URINE COLOR YELLOW (YELLW/STRAW); URINE LEUKOCYTE ESTERASE LARGE (NEG); WHITE BLOOD CELL CLUMPS RARE
[2017-06-23] MEDS ORDERED: LIDOCAINE HCL 1% 50 ML VIAL IM ONE (18:30)
[2017-06-23] MEDS ORDERED: AZITHROMYCIN 250 MG TAB PO ONE (18:30)
[2017-06-23] MEDS ORDERED: metroNIDAZOLE 500 MG TAB PO ONE (18:30)
[2017-06-23] MEDS ORDERED: ONDANSETRON ODT 4 MG TAB PO ONE (18:30)
[2017-06-23] MEDS ORDERED: CEPH-460 PO (18:32)
--- NOTE | 2017-06-23 18:43 | RADRPT ---
EXAM DATE/TIME: 06/23/2017 17:44 [facility] COMPARISON: No previous studies available for comparison. INDICATIONS : Pelvic pain. LAB(S): Beta-hC MEDICAL HISTORY : Asthma. SURGICAL HISTORY : Cholecystectomy. ENCOUNTER: Initial ACUITY: 1 day PAIN SCORE: 4/10 LOCATION: Bilateral pelvis MEASUREMENTS: UTERUS: 9.1 x 7.1 x 6.3 cm ENDOMETRIAL STRIPE: >20 mm RIGHT OVARY: 2.0 x 1.3 x 1.6 cm LEFT OVARY: 4.2 x 2.4 x 2.4 cm FREE FLUID: No CROWN RUMP LENGTH: 0.5 = 6 WKS 2 DAYS FHR: 154 BPM FINDINGS: UTERUS: There is an endometrial gestational sac with yolk sac and pole present. Cardiac activity is dem onstrated with heart rate of 154 bpm. RIGHT OVARY: Ovary contains no mass or significant cystic lesion. LEFT OVARY: Complex cyst measuring 1.9 x 1.4 x 1.4 cm likely reflecting corpus luteal cyst. MISCELLANEOUS: No free fluid. CONCLUSION: 1. Intrauterine gestational sac corresponding to 6 weeks 2 days with heart rate of 154 bpm. Ayad Sanchez MD on June 23, 2017 at 18:39 Board Certified Radiologist. This report was verified electronically.
[2017-06-23] MEDS ORDERED: LIDOCAINE ONE ×2 (18:45)
[2017-06-23] MEDS ORDERED: WATER STERILE FOR ONE ×2 (18:45)
[2017-06-23] MEDS ORDERED: LIDOCAINE 2% INFIL ONE ×2 (18:45)
[2017-06-23] MEDS ORDERED: WATER STERILE FOR INFIL ONE ×2 (18:45)
== END 2017-06-23 19:54 | disposition home or self-care (01) ==
LOC: NEPD 14:36
DX: O23.91 Unspecified genitourinary tract infection in pregnancy, first trimester (principal); O98.311 Other infections with a predominantly sexual mode of transmission complicating pregnancy, first trimester; A59.9 Trichomoniasis, unspecified; R10.2 Pelvic and perineal pain; Z3A.01 Less than 8 weeks gestation of pregnancy
CPT/HCPCS: 76700; 76817; 80053; 81001; 83690; 84702; 84703; 85025; 87086; 87210; 87491; 87591; 96372; 99284; J0696

== ENCOUNTER 2018-02-10 15:08 | Inpatient (IN) ==
[2018-02-10] MEDS ORDERED: Sodium Chlor 0.9% Inj 500 ML IV.SIG PRN (16:50)
[2018-02-10] MEDS ORDERED: Oxytocin 30 Units/500ml Premix 30 UNITS/500 ML BAG IV.SIG ONE (16:50)
[2018-02-10] MEDS ORDERED: fentaNYL Citrate Inj 100 MCG/2 ML Ampul IV.PUSH PRN ×2 (16:50)
[2018-02-10] MEDS ORDERED: Naloxone Inj 0.4 MG/ML Vial IV.PUSH PRN (16:50)
[2018-02-10] MEDS ORDERED: Sod Chloride 0.9% Inj 1,000 ML IV.CONT PRN (16:50)
[2018-02-10] MEDS ORDERED: Citric Acid/Sodium Citrate Liq 30 ML UDC PO SCH (17:00)
--- NOTE | 2018-02-10 17:02 | P.HPOB ---
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 This includes certification that hospital inpatient services are reasonable and necessary and in the case of services not specified as inpatient-only under 42 CFR 419.22(n), that they are appropriately provided as inpatient services in accordance to with the 2-midnight benchmark under 43 CFR 412.3(e) Estimated Total Length of Stay (Days): 3 Plans for Post Hospital Care: Home Review of Systems All other systems reviewed negative except as stated in HPI PMFSH - Travel History Recent Travel in the [place] Within the Last 8 Weeks: No Recent Travel Out of the Country Within the Last 8 Weeks: No - Immunization History Tetanus Immunization: Unsure Hx Influenza Vaccine This Season: No Medications and Allergies Active Medications: Active Medications Citric Acid/Sodium Citrate (Sodium Citrate/Citric Acid Liq) 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 [facility] Stop: 02/14/18 16:59 Fentanyl Citrate (Fentanyl Inj) 50 mcg IV.PUSH Q1H PRN PRN Reason: Pain Scale 3 - 5 Fentanyl Citrate (Fentanyl Inj) 100 mcg IV.PUSH Q1H PRN PRN Reason: PAIN SCALE 6 TO 10 Lactated Ringer's (Lr 1000 Ml Inj) 1,000 mls @ 125 mls/hr IV.CONT .Q8H [facility] Lactated Ringer's (Lr 1000 Ml Inj) 1,000 mls @ 3,000 mls/hr IV.SIG UNSCH PRN PRN Reason: compromise or epidural Sodium Chloride (Ns Inj) 500 mls @ 1,000 mls/hr IV.SIG UNSCH PRN PRN Reason: SEE LABEL COMMENTS Sodium Chloride (Ns Inj) 1,000 mls @ 100 mls/hr IV.CONT .Q10H PRN PRN Reason: SEE LABEL COMMENTS Oxytocin (Pitocin 30 Units/Ns 500 Ml Premix) 30 units in 500 mls @ 999 mls/hr IV.SIG BOLUS ONE Stop: 02/10/18 17:20 Lidocaine HCl (Xylocaine 1% Inj) 0.1 ml I-DERMAL PRN PRN PRN Reason: For IV start Stop: 02/13/18 16:49 Lidocaine HCl (Xylocaine 1% Inj) 10 ml INFILTRATN PRN PRN PRN Reason: For episiotomy repair Stop: 02/12/18 16:49 Metoclopramide HCl (Reglan Inj) 10 mg IV.PUSH ONCE PRN; Protocol PRN Reason: NAUSEA OR VOMITING Mineral Oil (Muri-Lube Oil) 10 ml TOPICAL PRN PRN PRN Reason: PRN perineal massage Misoprostol (Cytotec) 25 mcg VAGINAL ONCE PRN PRN Reason: For cervical ripening Stop: 02/11/18 20:53 Misoprostol (Cytotec) 25 mcg VAGINAL ONCE ONE Stop: 02/10/18 16:51 Naloxone HCl (Narcan Inj) 0.1 mg IV.PUSH Q2M PRN PRN Reason: for opiate reversal Ondansetron HCl (Zofran Inj) 4 mg IV.PUSH Q6H PRN PRN Reason: NAUSEA OR VOMITING Sodium Chloride (Ns Flush) 2 ml IV.FLUSH BID [place] Sodium Chloride (Ns Flush) 2 ml IV.FLUSH PRN PRN PRN Reason: FLUSH AFTER USING IV ACCESS Allergies Allergy/AdvReac Type Severity Reaction Status Date / Time almond Allergy Hives Verified 02/10/18 16:51 egg [Eggs] Allergy Hives Verified 02/10/18 15:58 latex Allergy Hives Verified 02/10/18 15:58 peanut [peanuts] Allergy Hives Verified 02/10/18 15:58 sunflower seed Allergy Hives Verified 02/10/18 16:50 walnut Allergy Hives Verified 02/10/18 16:51 Exam Vital signs: Vital Signs 02/10/18 16:00 Temperature 97.9 F Pulse Rate 113 H Respiratory Rate 18 Blood Pressure 130/62 Intake & Output 02/09/18 02/10/18 02/10/18 18:59 06:59 18:59 Weight 147 kg Other: Weight On Admission 147 kg - Constitutional no acute distress - Routine HEENT Exam Head: Present: normocephalic - Routine Respiratory Exam Present: CTA bilaterally - Routine Cardiovascular Exam Present: RRR - Routine Abdominal Exam Present: soft - Routine Exam Comments: : cervix /50/-3,/ soft/posterior - Routine Extremities Exam Present: edema (1+) - Routine Neurological Exam Present: alert, oriented X3 Caprini VTE Risk Assessment Caprini VTE Risk Assessment: No/Low Risk (score <= 1) Caprini Risk Assessment Model: Point Value = 1 Point Value = 2 Point Value = 3 Point Value = 5 Age 41-60 Minor surgery BMI > 25 kg/m2 Swollen legs Varicose veins or History of unexplained or recurrent spontaneous Oral contraceptives or hormone replacement Sepsis (< 1 month) Serious lung disease, including pneumonia (< 1 month) Abnormal pulmonary function Acute myocardial infarction Congestive heart failure (< 1 month) History of inflammatory bowel disease Medical patient at bed rest Age 61-74 Arthroscopic surgery Major open surgery (> 45 min) Laparoscopic surgery (> 45 min) Malignancy Confined to bed (> 72 hours) Immobilizing plaster cast Central venous access Age >= 75 History of VTE Family history of VTE Factor V Leiden Prothrombin [id number] Lupus anticoagulant Anticardiolipin antibodies Elevated serum homocysteine Heparin-induced thrombocytopenia Other congenital or acquired thrombophilia Stroke (< 1 month) Elective arthroplasty Hip, pelvis, or leg fracture Acute spinal cord injury (< 1 month) Prophylaxis Regimen: Total Risk Factor Score Risk Level Prophylaxis Regimen 0-1 Low Early ambulation 2 Moderate Order ONE of the following: *Sequential Compression Device (SCD) *Heparin 5000 units SQ BID 3-4 Higher Order ONE of the following medications: *Heparin 5000 units SQ TID *Enoxaparin/Lovenox 40 mg SQ daily (WT < 150 kg, CrCl > 30 mL/min) *Enoxaparin/Lovenox 30 mg SQ daily (WT < 150 kg, CrCl > 10-29 mL/min) *Enoxaparin/Lovenox 30 mg SQ BID (WT < 150 kg, CrCl > 30 mL/min) AND/OR *Sequential Compression Device (SCD) 5 or more Highest Order ONE of the following medications: *Heparin 5000 units SQ TID (Preferred with Epidurals) *Enoxaparin/Lovenox 40 mg SQ daily (WT < 150 kg, CrCl > 30 mL/min) *Enoxaparin/Lovenox 30 mg SQ daily (WT < 150 kg, CrCl > 10-29 mL/min) *Enoxaparin/Lovenox 30 mg SQ BID (WT < 150 kg, CrCl > 30 mL/min) AND *Sequential Compression Device (SCD) Assessment and Plan - Plan 37 yo at 40w0d by 10w US (KEVIN 02/10/18), 1. IUP: Cat 1 tracing - GBS neg, female "humberto", posterior placenta - EFW (01/20) = 2603g (27%) - Cephalic by nursing US on arrival 2. IOL: for #2, BS unfavorable, PV miso 25mcg q4h, may eat if cat 1 tracing after 1-2 hours of miso. 2. Elevated BPs: given pts gestational age I offered triage for r/o prec / GHTN or IOL for assumed hypertensive dz of , pt desired IOL, discussed risk of IOL, prolonged IOL, risk of . HELLP labs and P:C pending. 3. Obesity: normal 1hr GTT 4. AMA: normal AU, NIPS WNL
[2018-02-10 17:03] LABS: Baso % (Auto) 0.3 % (0.0-2.0); Eos % (Auto) 0.2 % (0.0-4.0); Hematocrit 34.3 % (35.0-46.0); Hemoglobin 11.4 gm/dL (11.6-15.3); Lymph # (Auto) 1.7 th/mm3 (1.0-4.8); Lymph % (Auto) 22.4 % (9.0-44.0); Mean Corpuscular HGB Conc 33.4 % (32.0-36.0); Mean Corpuscular Hemoglobin 31.6 pg (27.0-34.0); Mean Corpuscular Volume 94.8 fL (80.0-100.0); Mean Platelet Volume 10.1 fL (7.0-11.0); Mono # (Auto) 0.6 th/mm3 (0.0-0.9); Mono % (Auto) 8.5 % (0.0-8.0); Neut # (Auto) 5.1 th/mm3 (1.8-7.7); Neut % (Auto) 68.6 % (16.0-70.0); Platelet Count 190 th/mm3 (150-450); Red Blood Count 3.62 mil/mm3 (4.00-5.30); Red Cell Distribution Width 14.5 % (11.6-17.2); White Blood Count 7.5 th/mm3 (4.0-11.0)
[2018-02-10 17:17] LABS: Bacteria,Urine Many /hpf; Bilirubin,Urine Negative (Negative); Clarity,Urine Clear (Clear); Color,Urine Yellow (Yellw/Straw); Glucose,Urine (UA) Negative (Negative); Leukocyte Esterase,Urine Negative (Negative); Mucus,Urine Few /lpf (Occasional); Nitrite,Urine Negative (Negative); Squamous Epithelial Cell,Urine 2 /hpf (0-5)
[2018-02-10 17:22] LABS: Amphetamine Urine With Conf Neg (Neg); Benzodiazepine Urine With Conf Neg (Neg)
[2018-02-10 17:23] LABS: Protein/Creatinine Ratio,Urine 0.14 (0.00-0.14)
[2018-02-10 17:32] LABS: Albumin 2.6 g/dL (3.4-5.0); Anion Gap 9 meq/L (5-15); Aspartate Aminotransferase 19 U/L (15-37); Blood Urea Nitrogen 12 mg/dL (7-18); Calcium 9.3 mg/dL (8.5-10.1); Carbon Dioxide 21.9 meq/L (21.0-32.0); Chloride 107 meq/L (98-107); Glomerular Filtration Rate 69 mL/min (>89); Glucose,Random 89 mg/dL (74-106); Potassium 4.3 meq/L (3.5-5.1); Sodium 138 meq/L (136-145)
[2018-02-10 17:33] LABS: Alanine Aminotransferase 19 U/L (10-53)
[2018-02-10 17:35] LABS: Alkaline Phosphatase 157 U/L (45-117); Total Protein 7.3 g/dL (6.4-8.2)
[2018-02-11] MEDS ORDERED: fentaNYL 2MCG-Bupiv 0.125% Epi 150 ML EPIDURAL ONE (04:35)
[2018-02-11] MEDS ORDERED: Lidocaaine 1.5%/Epinephrine 1:200,000 PF Inj 5 ML Amp ONE (04:50)
[2018-02-11] MEDS ORDERED: Lidocaine PF 1% Inj 5 ML Vial ONE (04:50)
[2018-02-11] MEDS ORDERED: fentaNYL 2MCG-Bupiv 0.125% Epi 150 ML EPIDURAL PRN (05:35)
[2018-02-11] MEDS ORDERED: fentaNYL Citrate Inj 100 MCG/2 ML Ampul EPIDURAL ONE (05:35)
--- NOTE | 2018-02-11 07:23 | P.OBGPN ---
S: Patient feels well, no pain, denies headache, blurred vision or epigastric pain. O: Exam: 5-6 cm, 70% effaced, -2 to -3 station, AROM this check, clear fluid IUPC and FSE placed. FHTs: 150s-170s, moderate variability, no accelerations present, occasional late deceleration but not with greater than 50% of contractions. TOCO: Contractions irregularly every 2-5 minutes A/P 37 yo at 40w1d by 10w US (KEVIN 02/10/18), 1. IUP: Cat 2 tracing - GBS neg, female "humberto", posterior placenta - EFW (01/20) = 2603g (27%) - Cephalic by nursing US on arrival 2. IOL: for suspected GHTN vs PREC however does not meet criteria yet. - Status post misoprostol x3, AROM this check (0700), due to concerns with heart tracing we will continue resuscitative efforts, she is status post IV fluid bolus, repositioning, ephedrine x4, maternal O2, however she does not have relative hypotension. Discussed with patient that if persistent category 2 tracing without progress and/or deteriorating status will need to proceed with . At this time expectant management, begin Pitocin if reassuring tracing within the next hour. 2. Elevated BPs: were in the office, all normotensive here. 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 3. Obesity: normal 1hr GTT 4. AMA: normal AU, NIPS WNL 5. Asthma: well controlled w/o medications, will avoid hemabate if needed.
[2018-02-11] MEDS ORDERED: Prenatal Vit/Ca/Iron/Folic Acid Tablet PO SCH (09:00)
[2018-02-11] MEDS ORDERED: Phenylephrine/NS 1000 MCG/10ML Syringe IV.PUSH ONE (09:22)
[2018-02-11] MEDS ORDERED: fentaNYL Citrate Inj 100 MCG/2 ML Ampul ONE (09:25)
[2018-02-11] MEDS ORDERED: Lidocaine 2%/Epinephrine 1:100,000 Inj 20 ML Vial ONE (09:27)
[2018-02-11] MEDS ORDERED: Morphine Sulfate PF Inj 5 MG/10 ML Ampul ONE (09:51)
[2018-02-11] MEDS ORDERED: Oxytocin 30 Units/500ml Premix 30 UNITS/500 ML BAG IV.SIG ONE (10:22)
[2018-02-11] MEDS ORDERED: Simethicone 80 MG Chew Tablet PO PRN (10:22)
[2018-02-11] MEDS ORDERED: Zolpidem Tartrate 5 MG Tablet PO PRN (10:22)
--- NOTE | 2018-02-11 10:33 | P.OBDELI ---
Procedure Note - Pre Op Diagnosis (1) Non-reassuring cardiotocographic tracing (2) 40 weeks gestation of (3) Morbid obesity with BMI of 50.0-59.9, adult (4) Asthma affecting in third trimester (5) PIH ( induced hypertension) - Post Op Diagnosis (1) 40 weeks gestation of (2) Asthma affecting in third trimester (3) Morbid obesity with BMI of 50.0-59.9, adult (4) Non-reassuring cardiotocographic tracing (5) PIH ( induced hypertension) Performed by: Jazz Matthews MD Procedure: Primary Low Transverse Section Indication for Delivery: Nonreassuring heart tracing Informed Consent Obtained: For anesthesia, For procedure Confirmed Correct: Patient, Procedure, Site, Time-out taken Anesthesia: Epidural Medication Prior to Procedure: As documented in eMAR Monitoring During Procedure: Blood pressure monitoring, Pulse oximetry Urinary Catheter: Inserted using sterile technique (previously), ml urine output (200) Sterile Preparation: With 2% chlorexidine (Hibiclens) Position: Supine with wedge to right side, Supine with safety belt applied - Operative Features Skin Incision: Pfannenstiel Uterine Incision: Low transverse w/knife / blunt ext Membranes Ruptured: Artificially, Previously, Appearance of fluid (terminal meconium) Presentation: Other (OT) Status of : Viable, Cord blood, Nursery present, Resuscitation required ( CPAP, dispo to nicu) Placenta Delivered: Intact, Sent to pathology Medications: Antibiotics, Oxytocin Estimated blood loss (mL): 800 Procedure Tolerated: Well Maternal Condition: Stable Baby Complications: Hypoxia Baby Condition: Fair Procedure in Detail: Indication: Non-reassuring heart tones. Prolonged deceleration following repetitive late decelerations remote from delivery Intraoperative findings: Normal uterus, tubes and ovaries. Fetus OT, deep transverse arrest Complications: none Counts: Correct x 3 Specimens: cord blood Dispo: to pacu Procedure in detail: After review of informed consent, pt was taken to the OR where epidural anesthesia was redosed w/o complication. She was placed in a dorsal supine position with a slight left lateral tilt. She had graff placed in sterile fashion previously. SCDs not placed due to stat nature of procedure. Preoperative antibiotics given during procedure due to stat nature. Abdomen and perineum were prepped and draped in sterile fashion. A Pfannenstiel skin incision was made with the scalpel and carried down to the underlying layer of fascia sharply. The fascia was incised in the midline; this incision was extended bilaterally bluntly. The rectus muscles and peritoneum were entered bluntly to allow for good visualization of the lower uterine segment. Bladder blade was inserted. A bladder flap was not created. A low transverse uterine incision was made with the scalpel and extended bluntly in a cephalocaudal fashion. Clear amniotic fluid noted. The head was flexed, disengaged from the pelvis, and brought to the level of the hysterotomy. Fundal pressure was used to deliver the head, the rest of the body readily followed with fundal pressure. Viable female infant. Delayed cord clamping of 45 seconds was performed. Baby was handed off to team. Cord blood was collected. IV infusion of pitocin was started immediately after the delivery of the infant. The placenta was delivered w gentle cord traction and uterine massage. The uterus was exteriorized. The uterine cavity was cleared with moistened laparotomy sponges. The uterus was repaired in two layers with number 1 chromic in a running locked fashion followed by an imbricating layer. The posterior cul de sac was irrigated and suctioned. The uterus was noted to be hemostatic. It was returned to the abdomen. The anterior cul-de-sac was irrigated and suctioned. The peritoneum was closed with 2-0 chromic in a running fashion. The fascia was closed with number 1 vicryl in a running fashion. Subcutaneous tissue was irrigated and hemostasis obtained w the bovie. The subcutaneous tissue was brought together with 2-0 chromic in a running fashion. The skin was closed with 3-0 monocryl in a subcuticular fashion. A sterile pressure dressing was placed. PT was sent to pacu in stable condition. - Infant Infant: Female Female A Infant Delivery Date: 02/11/18 Infant Delivery Time: 09:31 Weight: 3.09 kg score (1 min): 8 score (5 min): 8
[2018-02-11] MEDS ORDERED: Naloxone Inj 0.4 MG/ML Vial IV.PUSH PRN (12:54)
[2018-02-11] MEDS ORDERED: Oxytocin 30 Units/500ml Premix 30 UNITS/500 ML BAG IV.SIG PRN (15:22)
[2018-02-11] MEDS ORDERED: NALBUPHINE 20 MG/ML IV.PUSH ONE (17:53)
[2018-02-11] MEDS ORDERED: Acetaminophen 325 MG Tablet PO PRN (18:00)
[2018-02-12] MEDS: Senna/Docusate Sodium 8.6/50 MG Tablet PO PRN (05:55)
[2018-02-12 06:08] LABS: Baso % (Auto) 0.2 % (0.0-2.0); Eos % (Auto) 0.2 % (0.0-4.0); Hematocrit 31.2 % (35.0-46.0); Hemoglobin 10.2 gm/dL (11.6-15.3); Lymph # (Auto) 2.2 th/mm3 (1.0-4.8); Mean Corpuscular HGB Conc 32.5 % (32.0-36.0); Mean Corpuscular Hemoglobin 30.3 pg (27.0-34.0); Mean Platelet Volume 10.7 fL (7.0-11.0); Mono # (Auto) 1.4 th/mm3 (0.0-0.9); Mono % (Auto) 10.7 % (0.0-8.0); Neut # (Auto) 9.8 th/mm3 (1.8-7.7); Neut % (Auto) 72.9 % (16.0-70.0); Platelet Count 152 th/mm3 (150-450); Red Blood Count 3.35 mil/mm3 (4.00-5.30); Red Cell Distribution Width 14.3 % (11.6-17.2); White Blood Count 13.5 th/mm3 (4.0-11.0)
--- NOTE | 2018-02-12 07:57 | P.PNOB ---
Subjective Post op day: 1 Interval history: doing well, ambulating, voiding Objective Vital Signs/I&O: Vital Signs 02/11/18 08:01 02/11/18 08:16 02/11/18 08:31 Temperature Pulse Rate 123 H 117 H 109 H Respiratory Rate Blood Pressure 122/63 117/65 120/68 02/11/18 09:02 02/11/18 09:04 02/11/18 10:30 Temperature 98.4 F Pulse Rate 104 H 105 H Respiratory Rate 18 18 Blood Pressure 124/67 121/67 02/11/18 10:45 02/11/18 10:59 02/11/18 11:12 Temperature Pulse Rate 100 H 98 H 97 H Respiratory Rate 18 18 18 Blood Pressure 116/71 155/70 H 141/66 H 02/11/18 11:30 02/11/18 13:00 02/11/18 18:05 Temperature 98.0 F 98.3 F 98.2 F Pulse Rate 97 H 97 H 92 H Respiratory Rate 18 20 18 Blood Pressure 112/58 L 115/81 128/82 02/11/18 20:00 02/11/18 23:18 02/12/18 04:00 Temperature 98.5 F 98.2 F 98.4 F Pulse Rate 98 H 95 H 72 Respiratory Rate 18 18 18 Blood Pressure 140/69 107/55 L 105/53 L Intake & Output 02/11/18 02/12/18 02/12/18 18:59 06:59 18:59 Intake Total 500 / 500 Balance 500 / 500 Intake: IV 500 / 500 Pitocin 30 Units/NS 500 ml 500 / 500 Premix 30 units In 500 ml @ 100 mls/hr IV.SIG ONCE ONE Rx#: [id number] Result Diagrams: 02/12/18 05:16 02/10/18 16:30 Objective Remarks: GENERAL: Well-nourished, well-developed patient. CARDIOVASCULAR: Regular rate and rhythm without murmurs, gallops, or rubs. RESPIRATORY: Breath sounds equal bilaterally. No accessory muscle use. ABDOMEN/GI: Abdomen soft, non-tender, bowel sounds present. Incision: dressing Clean, dry and intact. Fundus: Firm, non-tender at umbilicus. GENITOURINARY: Light to moderate bleeding. EXTREMITIES: No cyanosis or edema, non-tender, without signs of DVT. Medications and IVs: Active Medications Acetaminophen (Tylenol) 650 mg PO Q6H PRN PRN Reason: PAIN SCALE 1 TO 2 Diphenhydramine HCl (Benadryl Inj) 25 mg IV.PUSH Q6H PRN PRN Reason: MILD TO MODERATE ITCHING Stop: 02/12/18 12:53 Diphenhydramine HCl (Benadryl) 50 mg PO Q6H PRN PRN Reason: MILD TO MODERATE ITCHING Stop: 02/12/18 12:53 Last Admin: 02/11/18 14:06 Dose: 50 mg Diphtheria/Pertussis/Tetanus Vacc (Boostrix Vaccine Inj) 0.5 ml IM .ONCE ONE Stop: 02/12/18 16:01 Hydroxyzine Pamoate (Vistaril) 25 mg PO Q6H PRN PRN Reason: ITCHING Last Admin: 02/11/18 22:39 Dose: 25 mg Lactated Ringer's (Lr 1000 Ml Inj) 1,000 mls @ 100 mls/hr IV.CONT .Q10H [facility] Stop: 02/12/18 11:21 Last Admin: 02/12/18 05:24 Dose: Not Given Oxytocin (Pitocin 30 Units/Ns 500 Ml Premix) 30 units in 500 mls @ 100 mls/hr IV.SIG UNSCH PRN PRN Reason: Heavy bleeding Ibuprofen (Motrin) 800 mg PO Q8H PRN PRN Reason: cramping Last Admin: 02/12/18 05:55 Dose: 800 mg Measles/Mumps/Rubella Vaccine Live (M-M-R Ii Vaccine Inj) 0.5 ml SQ .ONCE ONE Stop: 02/12/18 16:01 Miscellaneous Information (Misc Nursing Information) 1 each OTHER UNSCH PRN PRN Reason: SEE LABEL COMMENTS Stop: 02/12/18 12:53 Miscellaneous Information (Misc Nursing Information) 1 each OTHER UNSCH PRN PRN Reason: SEE LABEL COMMENTS Stop: 02/12/18 12:53 Naloxone HCl (Narcan Inj) 0.4 mg IV.PUSH UNSCH PRN PRN Reason: SEE LABEL COMMENTS Stop: 02/12/18 12:53 Oxycodone/Acetaminophen (Percocet 5/325 Mg) 1 tab PO Q4H PRN PRN Reason: PAIN SCALE 3 TO 5 Last Admin: 02/12/18 05:55 Dose: 1 tab Oxycodone/Acetaminophen (Percocet 5/325 Mg) 2 tab PO Q4H PRN PRN Reason: PAIN SCALE 6 TO 10 Senna/Docusate Sodium (Stacy-Colace) 2 tab PO Q12H PRN PRN Reason: CONSTIPATION Last Admin: 02/12/18 05:55 Dose: 2 tab Simethicone (Mylicon Chew) 80 mg PO QID PRN PRN Reason: FLATULENCE Sodium Chloride (Ns Flush) 2 ml IV.FLUSH BID [place] Last Admin: 02/12/18 05:24 Dose: Not Given Sodium Chloride (Ns Flush) 2 ml IV.FLUSH PRN PRN PRN Reason: FLUSH AFTER USING IV ACCESS Zolpidem Tartrate (Ambien) 5 mg PO HS PRN PRN Reason: INSOMNIA Assessment and Plan - Plan 37 yo at 40w0d by 10w US (KEVIN 02/10/18), s/p LSTC POD #1 for NRFHR , doing well, female OOB, advance diet, analgesia prn Discharge Planning: day 2-3 PP - Attending Attestation pt seen by me
[2018-02-12] MEDS ORDERED: Measles/Mumps/Rubella Vaccine Inj 0.5 ML Vial SQ ONE (16:00)
[2018-02-12] MEDS ORDERED: Diphtheria/Tetanus/Pertussis Vaccine Inj 0.5 ML Syringe IM ONE (16:00)
--- NOTE | 2018-02-13 09:38 | P.PNOB ---
Subjective Post op day: 2 Interval history: doing well, ambulating, +flatus Objective Vital Signs/I&O: Vital Signs 02/12/18 20:00 02/13/18 08:00 Temperature 98.3 F 98.2 F Pulse Rate 97 H 104 H Respiratory Rate 18 20 Blood Pressure 114/66 127/67 Result Diagrams: 02/12/18 05:16 02/10/18 16:30 Objective Remarks: GENERAL: Well-nourished, well-developed patient. CARDIOVASCULAR: Regular rate and rhythm without murmurs, gallops, or rubs. RESPIRATORY: Breath sounds equal bilaterally. No accessory muscle use. ABDOMEN/GI: Abdomen soft, non-tender, bowel sounds present. Incision: Clean, dry and intact. Fundus: Firm, non-tender at umbilicus. GENITOURINARY: Light to moderate bleeding. EXTREMITIES: No cyanosis or edema, non-tender, without signs of DVT. Medications and IVs: Active Medications Acetaminophen (Tylenol) 650 mg PO Q6H PRN PRN Reason: PAIN SCALE 1 TO 2 Hydroxyzine Pamoate (Vistaril) 25 mg PO Q6H PRN PRN Reason: ITCHING Last Admin: 02/11/18 22:39 Dose: 25 mg Oxytocin (Pitocin 30 Units/Ns 500 Ml Premix) 30 units in 500 mls @ 100 mls/hr IV.SIG UNSCH PRN PRN Reason: Heavy bleeding Ibuprofen (Motrin) 800 mg PO Q8H PRN PRN Reason: cramping Last Admin: 02/13/18 00:59 Dose: 800 mg Oxycodone/Acetaminophen (Percocet 5/325 Mg) 1 tab PO Q4H PRN PRN Reason: PAIN SCALE 3 TO 5 Last Admin: 02/13/18 06:15 Dose: 1 tab Oxycodone/Acetaminophen (Percocet 5/325 Mg) 2 tab PO Q4H PRN PRN Reason: PAIN SCALE 6 TO 10 Senna/Docusate Sodium (Stacy-Colace) 2 tab PO Q12H PRN PRN Reason: CONSTIPATION Last Admin: 02/12/18 05:55 Dose: 2 tab Simethicone (Mylicon Chew) 80 mg PO QID PRN PRN Reason: FLATULENCE Sodium Chloride (Ns Flush) 2 ml IV.FLUSH BID [place] Last Admin: 02/12/18 17:08 Dose: Not Given Sodium Chloride (Ns Flush) 2 ml IV.FLUSH PRN PRN PRN Reason: FLUSH AFTER USING IV ACCESS Zolpidem Tartrate (Ambien) 5 mg PO HS PRN PRN Reason: INSOMNIA Assessment and Plan - Diagnosis (1) delivery delivered Code(s): O82 - Encounter for delivery without indication Status: Acute (2) Non-reassuring cardiotocographic tracing Code(s): O76 - Abnormality in heart rate and rhythm complicating labor and delivery Status: Acute (3) 40 weeks gestation of Code(s): Z3A.40 - 40 weeks gestation of Status: Acute (4) Morbid obesity with BMI of 50.0-59.9, adult Code(s): E66.01 - Morbid (severe) obesity due to excess calories; Z68.43 - Body mass index (BMI) 50-59.9, adult Status: Acute - Plan 37 yo at 40w0d by 10w US (KEVIN 02/10/18), s/p LSTC POD #2 for NRFHR , doing well, female OOB, advance diet, analgesia prn Discharge Planning: day 2-3 PP - Attending Attestation pt seen by me
[2018-02-13] MEDS: Senna/Docusate Sodium 8.6/50 MG Tablet PO PRN (21:07)
[2018-02-14 08:16] VITALS: BP 120/69; PULSE 81; RESP 16
[2018-02-14 08:17] VITALS: TEMP 98
--- NOTE | 2018-02-14 09:50 | P.PNOB ---
Subjective Post op day: 3 Interval history: doing well, +flatus, ready to go home Objective Vital Signs/I&O: Vital Signs 02/13/18 20:00 02/14/18 08:00 Temperature 98.7 F 98.0 F Pulse Rate 104 H 81 Respiratory Rate 20 16 Blood Pressure 156/80 H 120/69 Result Diagrams: 02/12/18 05:16 02/10/18 16:30 Objective Remarks: GENERAL: Well-nourished, well-developed patient. CARDIOVASCULAR: Regular rate and rhythm without murmurs, gallops, or rubs. RESPIRATORY: Breath sounds equal bilaterally. No accessory muscle use. ABDOMEN/GI: Abdomen soft, non-tender, bowel sounds present. Incision: Clean, dry and intact. Fundus: Firm, non-tender at umbilicus. GENITOURINARY: Light to moderate bleeding. EXTREMITIES: No cyanosis or edema, non-tender, without signs of DVT. Medications and IVs: Active Medications Acetaminophen (Tylenol) 650 mg PO Q6H PRN PRN Reason: PAIN SCALE 1 TO 2 Hydroxyzine Pamoate (Vistaril) 25 mg PO Q6H PRN PRN Reason: ITCHING Last Admin: 02/11/18 22:39 Dose: 25 mg Oxytocin (Pitocin 30 Units/Ns 500 Ml Premix) 30 units in 500 mls @ 100 mls/hr IV.SIG UNSCH PRN PRN Reason: Heavy bleeding Ibuprofen (Motrin) 800 mg PO Q8H PRN PRN Reason: cramping Last Admin: 02/14/18 06:31 Dose: 800 mg Oxycodone/Acetaminophen (Percocet 5/325 Mg) 1 tab PO Q4H PRN PRN Reason: PAIN SCALE 3 TO 5 Last Admin: 02/14/18 06:30 Dose: 1 tab Oxycodone/Acetaminophen (Percocet 5/325 Mg) 2 tab PO Q4H PRN PRN Reason: PAIN SCALE 6 TO 10 Senna/Docusate Sodium (Stacy-Colace) 2 tab PO Q12H PRN PRN Reason: CONSTIPATION Last Admin: 02/13/18 21:07 Dose: 2 tab Simethicone (Mylicon Chew) 80 mg PO QID PRN PRN Reason: FLATULENCE Sodium Chloride (Ns Flush) 2 ml IV.FLUSH BID [place] Last Admin: 02/13/18 12:11 Dose: Not Given Sodium Chloride (Ns Flush) 2 ml IV.FLUSH PRN PRN PRN Reason: FLUSH AFTER USING IV ACCESS Zolpidem Tartrate (Ambien) 5 mg PO HS PRN PRN Reason: INSOMNIA Assessment and Plan - Diagnosis (1) delivery delivered Code(s): O82 - Encounter for delivery without indication Status: Acute (2) Non-reassuring cardiotocographic tracing Code(s): O76 - Abnormality in heart rate and rhythm complicating labor and delivery Status: Acute (3) 40 weeks gestation of Code(s): Z3A.40 - 40 weeks gestation of Status: Acute (4) Morbid obesity with BMI of 50.0-59.9, adult Code(s): E66.01 - Morbid (severe) obesity due to excess calories; Z68.43 - Body mass index (BMI) 50-59.9, adult Status: Acute - Plan 37 yo at 40w0d by 10w US (KEVIN 02/10/18), s/p LSTC POD #3 for NRFHR , doing well, female OOB, advance diet, analgesia prn d/c home, rto 1-2 wks Discharge Planning: day 2-3 PP - Attending Attestation pt seen by me
== END 2018-02-14 16:00 | disposition home or self-care (01) ==
LOC: H2E 15:08 → H1EA 02-11 12:25
PROVIDERS: ADMIT Obstetrics & Gynecology; ATTEND Obstetrics & Gynecology